=== PATIENT | female | born 1955 | race Caucasian/White ===

== ENCOUNTER → 2018-10-07 | Outpatient (CLI) | payer OTHER, BC | LOC: HYPER 10-05 14:13 | DX: T81.89XA Other complications of procedures, not elsewhere classified, initial encounter (principal); K57.21 Diverticulitis of large intestine with perforation and abscess with bleeding; L02.211 Cutaneous abscess of abdominal wall; S61.501A Unspecified open wound of right wrist, initial encounter; I10 Essential (primary) hypertension; K21.9 Gastro-esophageal reflux disease without esophagitis; M06.9 Rheumatoid arthritis, unspecified; G62.9 Polyneuropathy, unspecified; K65.8 Other peritonitis; M19.90 Unspecified osteoarthritis, unspecified site; M81.0 Age-related osteoporosis without current pathological fracture; F32.9 Major depressive disorder, single episode, unspecified; Z93.3 Colostomy status; Z79.52 Long term (current) use of systemic steroids; X58.XXXA Exposure to other specified factors, initial encounter; Y93.89 Activity, other specified; Y99.8 Other external cause status; Y92.89 Other specified places as the place of occurrence of the external cause; Y83.8 Other surgical procedures as the cause of abnormal reaction of the patient, or of later complication, without mention of misadventure at the time of the procedure ==

== ENCOUNTER → 2018-10-27 | Outpatient (CLI) | payer OTHER, BC | LOC: HYPER 10-14 16:24 | DX: T81.89XD Other complications of procedures, not elsewhere classified, subsequent encounter (principal); L98.492 Non-pressure chronic ulcer of skin of other sites with fat layer exposed; L02.211 Cutaneous abscess of abdominal wall; G62.9 Polyneuropathy, unspecified; I10 Essential (primary) hypertension; K57.21 Diverticulitis of large intestine with perforation and abscess with bleeding; K65.8 Other peritonitis; K21.9 Gastro-esophageal reflux disease without esophagitis; M06.9 Rheumatoid arthritis, unspecified; M81.0 Age-related osteoporosis without current pathological fracture; F32.9 Major depressive disorder, single episode, unspecified; Z96.60 Presence of unspecified orthopedic joint implant; Z43.3 Encounter for attention to colostomy; Z79.52 Long term (current) use of systemic steroids; Y83.8 Other surgical procedures as the cause of abnormal reaction of the patient, or of later complication, without mention of misadventure at the time of the procedure ==

== ENCOUNTER → 2018-11-10 | Outpatient (CLI) | payer OTHER, BC | LOC: HYPER 07:06 | DX: T81.89XD Other complications of procedures, not elsewhere classified, subsequent encounter (principal); L98.492 Non-pressure chronic ulcer of skin of other sites with fat layer exposed; L02.211 Cutaneous abscess of abdominal wall; I10 Essential (primary) hypertension; K65.8 Other peritonitis; K57.21 Diverticulitis of large intestine with perforation and abscess with bleeding; K21.9 Gastro-esophageal reflux disease without esophagitis; M06.9 Rheumatoid arthritis, unspecified; G62.9 Polyneuropathy, unspecified; M81.0 Age-related osteoporosis without current pathological fracture; F32.9 Major depressive disorder, single episode, unspecified; Z93.3 Colostomy status; Z79.52 Long term (current) use of systemic steroids; Y83.8 Other surgical procedures as the cause of abnormal reaction of the patient, or of later complication, without mention of misadventure at the time of the procedure ==

== ENCOUNTER → 2019-04-06 | Outpatient (CLI) | payer OTHER, BC | LOC: HYPER 09:01 | DX: T81.31XD Disruption of external operation (surgical) wound, not elsewhere classified, subsequent encounter (principal); K68.19 Other retroperitoneal abscess; K21.9 Gastro-esophageal reflux disease without esophagitis; M06.9 Rheumatoid arthritis, unspecified; M19.90 Unspecified osteoarthritis, unspecified site; M81.0 Age-related osteoporosis without current pathological fracture; G62.9 Polyneuropathy, unspecified; F32.9 Major depressive disorder, single episode, unspecified; Y83.8 Other surgical procedures as the cause of abnormal reaction of the patient, or of later complication, without mention of misadventure at the time of the procedure ==